=== PATIENT | male | born 1935 | race Caucasian/White ===

== ENCOUNTER 2018-02-04 17:16 | Inpatient (IN) | payer MEDICARE, BC ==
[~2018-02-04] VITALS: Ht 172.7 cm; Wt 69.5 kg
[2018-02-04] MEDS ORDERED: normal saline 1000ml 1,000 ML IV ONE (17:24)
[2018-02-04 17:48] LABS: BASOPHILS % (AUTO) 0.3 % (0-1); EOSINOPHILS # (AUTO) 0.1 X10'3 (0-0.9); EOSINOPHILS % (AUTO) 0.8 % (0-6); HEMATOCRIT 37.3 % (42.0-52.0); HEMOGLOBIN 12.4 g/dl (14.0-17.9); LYMPHOCYTES # (AUTO) 1.4 X10'3 (1.1-4.8); LYMPHOCYTES % (AUTO) 11.5 % (21-51); MEAN CORPUSCULAR HGB CONC 33.3 % (33.0-36.5); MEAN CORPUSCULAR VOLUME 86.9 FL (78-98); MEAN PLATELET VOLUME 9.8 FL (7.4-10.4); MONOCYTES % (AUTO) 8.4 % (2-12); NEUTROPHILS # (AUTO) 9.7 X10'3 (1.8-7.7); PLATELET COUNT 156 X10'3 (140-440); RED BLOOD COUNT 4.29 X10'6 (4.70-6.10); RED CELL DISTRIBUTION WIDTH 17.7 % (11.5-14.5); WHITE BLOOD COUNT 12.3 X10'3 (4.5-11.0)
[2018-02-04 18:01] LABS: INR 1.1 INR; PARTIAL THROMBOPLASTIN TIME 27 SECONDS (22-32); PROTHROMBIN TIME 11.2 SECONDS (9.0-12.0)
[2018-02-04 18:09] LABS: ALANINE AMINOTRANSFERASE 13 U/L (12-78); ALBUMIN 2.9 G/DL (3.4-5.0); ALBUMIN/GLOBULIN RATIO 0.7 (1.1-1.5); ALKALINE PHOSPHATASE 92 IU/L (46-116); ANION GAP 17 (8-16); ASPARTATE AMINO TRANSFERASE 13 U/L (10-37); BILIRUBIN,TOTAL 0.2 MG/DL (0.1-1.0); BLOOD UREA NITROGEN 97 MG/DL (7-18); BUN/CREATININE RATIO 12.8 (5.4-32.0); CHLORIDE 104 MMOL/L (99-107); CREATININE 7.55 MG/DL (0.60-1.10); GLUCOSE 101 MG/DL (70-104); POTASSIUM 4.6 MMOL/L (3.5-5.1); SODIUM 143 MMOL/L (135-145); TOTAL CARBON DIOXIDE 21.7 MMOL/L (24-32); TOTAL PROTEIN 7.1 G/DL (6.4-8.2); eGFR 7 ML/MIN
[2018-02-04 18:20] LABS: MAGNESIUM 3.6 MG/DL (1.5-2.4)
[2018-02-04 18:25] LABS: PHOSPHORUS 12.9 MG/DL (2.3-4.5)
[2018-02-04] MEDS ORDERED: magnesium 1gm/100ml D5W IVPB 100 ML IV PRN (18:25)
[2018-02-04] MEDS ORDERED: mag hydrox/Alum hydrox/simeth 30ml oral suspension PO PRN (18:25)
[2018-02-04] MEDS ORDERED: acetaminophen 325mg tablet PO PRN (18:25)
[2018-02-04] MEDS ORDERED: ondansetron/PF 4mg/2ml inj IV PRN (18:25)
[2018-02-04] MEDS ORDERED: HYDROcodone/acetaminophen 10/325mg tab PO PRN (18:25)
[2018-02-04] MEDS ORDERED: magnesium 4gm in 100ml NS 100 ML IV PRN (18:25)
[2018-02-04] MEDS ORDERED: magnesium Cl slow-release 64mg tablet PO PRN (18:25)
[2018-02-04] MEDS ORDERED: potassium Cl 20 mEq SR tablet PO PRN ×2 (18:25)
[2018-02-04] MEDS ORDERED: potassium Cl 40MEQ/NS 500ml 500 ML IV PRN ×2 (18:25)
[2018-02-04] MEDS ORDERED: HYDROcodone/acetaminophen 5mg/325mg tablet PO PRN (18:25)
[2018-02-04] MEDS ORDERED: morphine 4 MG/ML inj SYRINge IV PRN ×2 (18:25)
[2018-02-04 18:31] LABS: CLARITY,URINE CLOUDY (Clear); COLOR,URINE YELLOW (Yellow); GLUCOSE, URINE NEGATIVE (Neg); KETONES,URINE NEGATIVE (Neg); LEUKOCYTE ESTERASE ,URINE TRACE (Neg); NITRITES, URINE NEGATIVE (Neg); OCCULT BLOOD,URINE SMALL (Neg); PH,URINE 5.5 (4.8-8.0); PROTEIN,URINE 30 mg/dl (Neg); UA COLLECTION TYPE FOLEY CATH; UROBILINOGEN,URINE 0.2 E.U/dL (0.2-1.0)
[2018-02-04 18:38] LABS: HYALINE CASTS >30 /LPF (NEGATIVE); SQUAMOUS EPITHELIAL CELL,UR FEW /LPF (FEW)
[2018-02-04 18:39] LABS: BACTERIA,URINE 1+ /HPF (Neg); RBC,URINE 0-2 /HPF (0-2); RENAL CELLS, URINE MODERATE /HPF; TRANSITIONAL EPI CELLS,URINE FEW /HPF
[2018-02-04] MEDS ORDERED: proCHLORperazine 10 MG/2 ml inj IV PRN (18:55)
[2018-02-04] MEDS ORDERED: vancomycin 125mg/5ml ORAL solution 5ml UD bottle PO SCH (20:00)
[2018-02-04] MEDS: normal saline 1000ml 1,000 ML IV SCH (20:43)
[2018-02-04] MEDS: metroNIDAZOLE-Flagyl 500mg/NS 100 ML IV SCH ×2 (21:28→23:57)
[2018-02-04] MEDS: pantoprazole 40 MG vial IV SCH (21:28)
[2018-02-04] MEDS: calcium acetate 667mg (PhosLO) capsule PO SCH (21:28)
[2018-02-04] MEDS: LIDOcaine 5% patch TP SCH (21:28)
[2018-02-04] MEDS: heparin, porcine 5000 units/ml vial SQ SCH (21:29)
[2018-02-04 23:00] VITALS: BP 96/45
[2018-02-05 03:00] VITALS: BP 89/31
[2018-02-05] MEDS: normal saline 1000ml 1,000 ML IV SCH ×3 (04:25→15:57)
[2018-02-05 06:00] VITALS: BP 90/42
[2018-02-05 06:02] LABS: BASOPHILS % (AUTO) 0.3 % (0-1); EOSINOPHILS # (AUTO) 0.4 X10'3 (0-0.9); HEMATOCRIT 35.5 % (42.0-52.0); HEMOGLOBIN 11.9 g/dl (14.0-17.9); LYMPHOCYTES # (AUTO) 1.7 X10'3 (1.1-4.8); LYMPHOCYTES % (AUTO) 18.3 % (21-51); MEAN CORPUSCULAR HGB CONC 33.6 % (33.0-36.5); MEAN CORPUSCULAR VOLUME 86.4 FL (78-98); MONOCYTES # (AUTO) 0.6 X10'3 (0-0.9); MONOCYTES % (AUTO) 6.6 % (2-12); NEUTROPHILS # (AUTO) 6.4 X10'3 (1.8-7.7); NEUTROPHILS % (AUTO) 70.8 % (42-75); PLATELET COUNT 140 X10'3 (140-440); RED BLOOD COUNT 4.11 X10'6 (4.70-6.10); RED CELL DISTRIBUTION WIDTH 17.4 % (11.5-14.5); WHITE BLOOD COUNT 9.1 X10'3 (4.5-11.0)
[2018-02-05 06:09] LABS: ALANINE AMINOTRANSFERASE 9 U/L (12-78); ALBUMIN 2.8 G/DL (3.4-5.0); ALBUMIN/GLOBULIN RATIO 0.6 (1.1-1.5); ALKALINE PHOSPHATASE 90 IU/L (46-116); ANION GAP 18 (8-16); ASPARTATE AMINO TRANSFERASE 16 U/L (10-37); BILIRUBIN,TOTAL 0.1 MG/DL (0.1-1.0); BLOOD UREA NITROGEN 94 MG/DL (7-18); BUN/CREATININE RATIO 16.3 (5.4-32.0); CALCIUM 7.7 MG/DL (8.5-10.1); CHLORIDE 107 MMOL/L (99-107); CREATININE 5.78 MG/DL (0.60-1.10); GLUCOSE 82 MG/DL (70-104); POTASSIUM 4.4 MMOL/L (3.5-5.1); SODIUM 146 MMOL/L (135-145); TOTAL PROTEIN 7.5 G/DL (6.4-8.2); eGFR 9 ML/MIN
[2018-02-05 06:16] LABS: MAGNESIUM 3.4 MG/DL (1.5-2.4)
[2018-02-05] MEDS: LIDOcaine 5% patch TP SCH (08:00)
[2018-02-05] MEDS: K and/or MAG REPLACEMENT MC SCH (08:00)
[2018-02-05 08:59] LABS: PHOSPHORUS 8.9 MG/DL (2.3-4.5)
[2018-02-05] MEDS: calcium acetate 667mg (PhosLO) capsule PO SCH ×3 (09:32→19:25)
[2018-02-05] MEDS: metroNIDAZOLE-Flagyl 500mg/NS 100 ML IV SCH ×2 (09:32→15:56)
[2018-02-05] MEDS: nicotine 21mg patch - 24 hr TD SCH (09:33)
[2018-02-05] MEDS: pantoprazole 40 MG vial IV SCH (09:33)
[2018-02-05] MEDS: heparin, porcine 5000 units/ml vial SQ SCH ×2 (09:36→22:37)
[2018-02-05 09:53] LABS: CLARITY,URINE SLIGHTLY CLOUDY (Clear); COLOR,URINE YELLOW (Yellow); GLUCOSE, URINE NEGATIVE (Neg); KETONES,URINE NEGATIVE (Neg); LEUKOCYTE ESTERASE ,URINE SMALL (Neg); NITRITES, URINE NEGATIVE (Neg); OCCULT BLOOD,URINE LARGE (Neg); PROTEIN,URINE 100 mg/dl (Neg); UROBILINOGEN,URINE 0.2 E.U/dL (0.2-1.0)
[2018-02-05 10:01] LABS: TOTAL PROTEIN,URINE RANDOM 87.4 MG/DL; UA COLLECTION TYPE FOLEY CATH
[2018-02-05 10:02] LABS: BACTERIA,URINE FEW /HPF (Neg)
[2018-02-05 10:03] LABS: HYALINE CASTS 0-3 /LPF (NEGATIVE); MUCUS STRANDS FEW /LPF (Neg); SQUAMOUS EPITHELIAL CELL,UR FEW /LPF (FEW); TRANSITIONAL EPI CELLS,URINE FEW /HPF; WBC CLUMPS,URINE FEW /HPF (NEGATIVE)
[2018-02-05 10:49] LABS: UA EOSINOPHILS NO EOS /HPF
[2018-02-05 11:00] VITALS: BP 88/48
[2018-02-05] MEDS ORDERED: TEMA15CA PO (11:17)
[2018-02-05] MEDS ORDERED: OXYC-150 PO (11:17)
[2018-02-05] MEDS ORDERED: FURO-149 PO (11:17)
[2018-02-05] MEDS ORDERED: NYST1000 PO (11:17)
[2018-02-05] MEDS ORDERED: PANT-47 PO (11:17)
[2018-02-05] MEDS ORDERED: MSC15T PO (11:17)
[2018-02-05] MEDS ORDERED: SYN0.112T PO (11:17)
[2018-02-05] MEDS ORDERED: NITR0.4T51 SL (11:17)
[2018-02-05] MEDS ORDERED: SIMV10TA6 PO (11:17)
[2018-02-05] MEDS ORDERED: CLOP75TA15 PO (11:19)
[2018-02-05] MEDS ORDERED: SOTA80TA PO (11:19)
[2018-02-05] MEDS ORDERED: LORA10TA7 PO (11:19)
[2018-02-05] MEDS ORDERED: LISI40TA4 PO (11:19)
[2018-02-05 11:28] LABS: CRYPTOSPORIDIUM AG NEGATIVE (Neg); GIARDIA LAMBLIA AG NEGATIVE (Neg)
[2018-02-05] MEDS ORDERED: oxyCODONE/APAP 10/325mg tablet PO PRN (11:35)
[2018-02-05] MEDS ORDERED: nitroGLYCERIN 0.4mg SUBLingual tab SL PRN (11:35)
[2018-02-05 11:42] LABS: C DIFF ANTIGEN NEGATIVE (NEGATIVE); C DIFF SPECIMEN=DIARRHEA? ACCEPTABLE; C DIFFICILE TOXINS A&B NEGATIVE (Neg)
[2018-02-05] MEDS ORDERED: loperamide 2mg capsule PO PRN (11:50)
[2018-02-05 13:42] LABS: CREATINE KINASE 478 U/L (39-308)
[2018-02-05 15:00] VITALS: BP_SYST 89; BP_SYST 91; BP_SYST 97; BP_DIAS 39; BP_DIAS 41; BP_DIAS 47
[2018-02-05] MEDS ORDERED: diltiazem 5mg/ml 5ml inj. IV ONE (15:30)
[2018-02-05 19:00] VITALS: BP 89/45
[2018-02-05] MEDS: morphine ER 15mg tablet PO SCH (20:00)
[2018-02-05] MEDS: atorvastatin 10mg tablet PO SCH (22:36)
[2018-02-05 23:00] VITALS: BP 91/40
[2018-02-06] MEDS: metroNIDAZOLE-Flagyl 500mg/NS 100 ML IV SCH ×2 (00:13→09:05)
[2018-02-06 03:00] VITALS: BP 106/52
[2018-02-06 06:00] VITALS: BP 119/43
[2018-02-06 06:11] LABS: BASOPHILS % (AUTO) 0.4 % (0-1); EOSINOPHILS # (AUTO) 0.4 X10'3 (0-0.9); EOSINOPHILS % (AUTO) 4.7 % (0-6); HEMATOCRIT 34.3 % (42.0-52.0); HEMOGLOBIN 11.5 g/dl (14.0-17.9); LYMPHOCYTES # (AUTO) 1.1 X10'3 (1.1-4.8); LYMPHOCYTES % (AUTO) 14.9 % (21-51); MEAN CORPUSCULAR HGB CONC 33.5 % (33.0-36.5); MEAN CORPUSCULAR VOLUME 86.4 FL (78-98); MEAN PLATELET VOLUME 9.6 FL (7.4-10.4); MONOCYTES # (AUTO) 0.6 X10'3 (0-0.9); MONOCYTES % (AUTO) 7.3 % (2-12); NEUTROPHILS # (AUTO) 5.5 X10'3 (1.8-7.7); NEUTROPHILS % (AUTO) 72.7 % (42-75); PLATELET COUNT 137 X10'3 (140-440); RED BLOOD COUNT 3.97 X10'6 (4.70-6.10); RED CELL DISTRIBUTION WIDTH 17.8 % (11.5-14.5); WHITE BLOOD COUNT 7.6 X10'3 (4.5-11.0)
[2018-02-06] MEDS: pantoprazole 40 MG vial IV SCH (06:34)
[2018-02-06] MEDS: normal saline 1000ml 1,000 ML IV SCH ×2 (06:37→14:37)
[2018-02-06 06:40] LABS: ALANINE AMINOTRANSFERASE 16 U/L (12-78); ALBUMIN 2.6 G/DL (3.4-5.0); ALBUMIN/GLOBULIN RATIO 0.7 (1.1-1.5); ALKALINE PHOSPHATASE 72 IU/L (46-116); ANION GAP 11 (8-16); ASPARTATE AMINO TRANSFERASE 26 U/L (10-37); BILIRUBIN,TOTAL 0.3 MG/DL (0.1-1.0); BLOOD UREA NITROGEN 62 MG/DL (7-18); BUN/CREATININE RATIO 26.1 (5.4-32.0); CALCIUM 8.3 MG/DL (8.5-10.1); CHLORIDE 117 MMOL/L (99-107); CREATININE 2.38 MG/DL (0.60-1.10); GLUCOSE 77 MG/DL (70-104); LACTATE DEHYDROGENASE 182 U/L (85-227); MAGNESIUM 2.6 MG/DL (1.5-2.4); PHOSPHORUS 4.3 MG/DL (2.3-4.5); POTASSIUM 3.5 MMOL/L (3.5-5.1); SODIUM 147 MMOL/L (135-145); TOTAL CARBON DIOXIDE 19.5 MMOL/L (24-32); TOTAL PROTEIN 6.6 G/DL (6.4-8.2); eGFR 26 ML/MIN
[2018-02-06 07:20] LABS: RHEUM FACTOR QUAL REFLEX TITER NEGATIVE (Neg)
[2018-02-06] MEDS: loratadine 10mg tablet PO SCH (08:00)
[2018-02-06] MEDS ORDERED: levoTHYROXINE 112mcg tablet PO SCH (08:00)
[2018-02-06] MEDS: K and/or MAG REPLACEMENT MC SCH (08:00)
[2018-02-06] MEDS: calcium acetate 667mg (PhosLO) capsule PO SCH ×3 (09:03→19:55)
[2018-02-06] MEDS: morphine ER 15mg tablet PO SCH (09:03)
[2018-02-06] MEDS: heparin, porcine 5000 units/ml vial SQ SCH ×2 (09:04→19:56)
[2018-02-06] MEDS: pantoprazole 40mg Tablet.DR PO SCH (09:04)
[2018-02-06] MEDS: clopidogrel 75mg tablet PO SCH (09:04)
[2018-02-06] MEDS: LIDOcaine 5% patch TP SCH (09:05)
[2018-02-06] MEDS: nicotine 21mg patch - 24 hr TD SCH (09:05)
[2018-02-06 11:00] VITALS: BP 132/67
[2018-02-06 12:02] LABS: % FREE PSA 55.7 % (.); PSA, FREE 1.17 ng/mL
[2018-02-06 15:00] VITALS: BP 114/59
[2018-02-06] MEDS ORDERED: metroNIDAZOLE 500mg tablet PO SCH (16:00)
[2018-02-06] MEDS ORDERED: morphine ER 15mg tablet PO PRN (17:55)
[2018-02-06 18:00] VITALS: BP 137/73
[2018-02-06] MEDS: atorvastatin 10mg tablet PO SCH (20:07)
[2018-02-06 22:00] VITALS: BP 116/73
[2018-02-07] MEDS: temazepam 15mg capsule PO PRN ×2 (00:15→23:54)
[2018-02-07 02:00] VITALS: BP 126/67
[2018-02-07 06:00] VITALS: BP 123/64
[2018-02-07 06:31] LABS: ALANINE AMINOTRANSFERASE 16 U/L (12-78); ALBUMIN 2.5 G/DL (3.4-5.0); ALBUMIN/GLOBULIN RATIO 0.7 (1.1-1.5); ALKALINE PHOSPHATASE 63 IU/L (46-116); ANION GAP 9 (8-16); ASPARTATE AMINO TRANSFERASE 15 U/L (10-37); BILIRUBIN,TOTAL 0.4 MG/DL (0.1-1.0); BLOOD UREA NITROGEN 33 MG/DL (7-18); BUN/CREATININE RATIO 21.9 (5.4-32.0); CALCIUM 8.8 MG/DL (8.5-10.1); CHLORIDE 119 MMOL/L (99-107); CREATININE 1.51 MG/DL (0.60-1.10); GLUCOSE 108 MG/DL (70-104); MAGNESIUM 2.1 MG/DL (1.5-2.4); PHOSPHORUS 2.3 MG/DL (2.3-4.5); POTASSIUM 3.1 MMOL/L (3.5-5.1); SODIUM 148 MMOL/L (135-145); TOTAL CARBON DIOXIDE 20.3 MMOL/L (24-32); TOTAL PROTEIN 6.3 G/DL (6.4-8.2); eGFR 45 ML/MIN
[2018-02-07 06:32] LABS: BASOPHILS % (AUTO) 0.5 % (0-1); EOSINOPHILS # (AUTO) 0.5 X10'3 (0-0.9); EOSINOPHILS % (AUTO) 6.7 % (0-6); HEMATOCRIT 33.9 % (42.0-52.0); HEMOGLOBIN 11.3 g/dl (14.0-17.9); LYMPHOCYTES # (AUTO) 1.5 X10'3 (1.1-4.8); LYMPHOCYTES % (AUTO) 19.5 % (21-51); MEAN CORPUSCULAR HEMOGLOBIN 28.7 PG (27.0-31.0); MEAN CORPUSCULAR HGB CONC 33.2 % (33.0-36.5); MEAN CORPUSCULAR VOLUME 86.4 FL (78-98); MEAN PLATELET VOLUME 9.7 FL (7.4-10.4); MONOCYTES # (AUTO) 0.7 X10'3 (0-0.9); MONOCYTES % (AUTO) 8.9 % (2-12); NEUTROPHILS # (AUTO) 4.9 X10'3 (1.8-7.7); NEUTROPHILS % (AUTO) 64.4 % (42-75); PLATELET COUNT 153 X10'3 (140-440); RED BLOOD COUNT 3.92 X10'6 (4.70-6.10); RED CELL DISTRIBUTION WIDTH 17.6 % (11.5-14.5); WHITE BLOOD COUNT 7.6 X10'3 (4.5-11.0)
[2018-02-07] MEDS ORDERED: pantoprazole 40mg Tablet.DR PO SCH (07:30)
[2018-02-07] MEDS: calcium acetate 667mg (PhosLO) capsule PO SCH ×2 (07:51→12:54)
[2018-02-07] MEDS: heparin, porcine 5000 units/ml vial SQ SCH (07:52)
[2018-02-07] MEDS: LIDOcaine 5% patch TP SCH (07:52)
[2018-02-07] MEDS: K and/or MAG REPLACEMENT MC SCH (08:00)
[2018-02-07] MEDS: docusate sod 100mg capsule PO SCH ×2 (08:20→19:40)
[2018-02-07] MEDS: loratadine 10mg tablet PO SCH (08:23)
[2018-02-07] MEDS: pantoprazole 40mg Tablet.DR PO SCH (08:23)
[2018-02-07] MEDS: clopidogrel 75mg tablet PO SCH (08:23)
[2018-02-07] MEDS: nicotine 21mg patch - 24 hr TD SCH (08:25)
[2018-02-07 09:48] LABS: ANTISTREPTOLYSIN O AB 40.7 IU/mL (0.0-200.0)
[2018-02-07 11:47] LABS: HEPATITIS C ANTIBODY 0.3 s/co ratio (0.0-0.9)
[2018-02-07] MEDS ORDERED: sotalol 80mg tablet PO ONE (11:55)
[2018-02-07 17:12] LABS: ANTINUCLEAR ANTIBODIES Negative (Negative)
[2018-02-07 19:00] VITALS: BP 146/78
[2018-02-07] MEDS: sotalol 80mg tablet PO SCH (19:40)
[2018-02-07] MEDS: atorvastatin 10mg tablet PO SCH (19:40)
[2018-02-07] MEDS ORDERED: sotalol 80mg tablet PO SCH (20:00)
[2018-02-08] MEDS: morphine ER 15mg tablet PO PRN ×3 (06:03→23:04)
[2018-02-08 06:43] LABS: COMPLEMENT C3, SERUM 129 mg/dL (82-167); COMPLEMENT C4, SERUM 24 mg/dL (14-44)
[2018-02-08] MEDS: nicotine 21mg patch - 24 hr TD SCH (06:49)
[2018-02-08] MEDS: oxyCODONE/APAP 10/325mg tablet PO PRN ×2 (06:50→23:48)
[2018-02-08] MEDS: docusate sod 100mg capsule PO SCH ×2 (06:50→19:58)
[2018-02-08] MEDS: pantoprazole 40mg Tablet.DR PO SCH (06:50)
[2018-02-08] MEDS: sotalol 80mg tablet PO SCH ×2 (06:51→19:58)
[2018-02-08] MEDS: loratadine 10mg tablet PO SCH (06:56)
[2018-02-08] MEDS: K and/or MAG REPLACEMENT MC SCH (08:00)
[2018-02-08] MEDS: LIDOcaine 5% patch TP SCH (08:00)
[2018-02-08 19:00] VITALS: BP 131/65
[2018-02-08] MEDS: atorvastatin 10mg tablet PO SCH (19:58)
[2018-02-08] MEDS: temazepam 15mg capsule PO PRN (23:03)
[2018-02-09 06:00] VITALS: BP 126/78
[2018-02-09] MEDS: K and/or MAG REPLACEMENT MC SCH (08:00)
[2018-02-09] MEDS: nicotine 21mg patch - 24 hr TD SCH (08:40)
[2018-02-09] MEDS: sotalol 80mg tablet PO SCH ×2 (08:41→20:15)
[2018-02-09] MEDS: pantoprazole 40mg Tablet.DR PO SCH (08:42)
[2018-02-09] MEDS: loratadine 10mg tablet PO SCH (08:42)
[2018-02-09] MEDS: docusate sod 100mg capsule PO SCH ×2 (08:42→20:15)
[2018-02-09] MEDS: LIDOcaine 5% patch TP SCH (08:43)
[2018-02-09 11:00] VITALS: BP 169/114
[2018-02-09] MEDS: atorvastatin 10mg tablet PO SCH (20:15)
[2018-02-09] MEDS: morphine ER 15mg tablet PO PRN (21:23)
[2018-02-09] MEDS: oxyCODONE/APAP 10/325mg tablet PO PRN (21:51)
[2018-02-09 22:00] VITALS: BP 143/68
[2018-02-09] MEDS: temazepam 15mg capsule PO PRN (23:52)
[2018-02-10] MEDS: docusate sod 100mg capsule PO SCH ×2 (07:55→18:56)
[2018-02-10] MEDS: pantoprazole 40mg Tablet.DR PO SCH (07:55)
[2018-02-10] MEDS: sotalol 80mg tablet PO SCH ×2 (07:55→18:56)
[2018-02-10] MEDS: loratadine 10mg tablet PO SCH (07:55)
[2018-02-10] MEDS: nicotine 21mg patch - 24 hr TD SCH (07:58)
[2018-02-10] MEDS: K and/or MAG REPLACEMENT MC SCH (08:00)
[2018-02-10] MEDS: LIDOcaine 5% patch TP SCH (08:03)
[2018-02-10] MEDS: oxyCODONE/APAP 10/325mg tablet PO PRN ×3 (08:07→23:49)
[2018-02-10] MEDS: morphine ER 15mg tablet PO PRN ×3 (09:16→23:00)
[2018-02-10] MEDS ORDERED: cyclobenzaprine 10mg tablet PO PRN (12:30)
[2018-02-10] MEDS: cyclobenzaprine 10mg tablet PO PRN (14:25)
[2018-02-10 15:13] LABS: ATYPICAL PANCA <1:20 titer (Neg:<1:20); CYTOPLASMIC (C-ANCA) <1:20 titer (Neg:<1:20); PERINUCLEAR (P-ANCA) <1:20 titer (Neg:<1:20)
[2018-02-10] MEDS: atorvastatin 10mg tablet PO SCH (18:56)
[2018-02-10 19:39] VITALS: BP 145/71
[2018-02-11] MEDS: temazepam 15mg capsule PO PRN ×2 (00:35→23:41)
[2018-02-11] MEDS: cyclobenzaprine 10mg tablet PO PRN ×2 (00:35→23:41)
[2018-02-11] MEDS: docusate sod 100mg capsule PO SCH ×2 (07:04→20:10)
[2018-02-11] MEDS: magnesium hydroxide 30ml (MOM) UD suspension PO PRN (07:06)
[2018-02-11] MEDS: morphine ER 15mg tablet PO PRN ×2 (07:06→20:15)
[2018-02-11] MEDS: sotalol 80mg tablet PO SCH ×2 (07:06→20:10)
[2018-02-11] MEDS: pantoprazole 40mg Tablet.DR PO SCH (07:06)
[2018-02-11] MEDS: nicotine 21mg patch - 24 hr TD SCH (07:07)
[2018-02-11] MEDS: loratadine 10mg tablet PO SCH (07:07)
[2018-02-11] MEDS: LIDOcaine 5% patch TP SCH (07:07)
[2018-02-11] MEDS: oxyCODONE/APAP 10/325mg tablet PO PRN ×2 (07:44→21:27)
[2018-02-11] MEDS: K and/or MAG REPLACEMENT MC SCH (08:00)
[2018-02-11 10:00] VITALS: BP 115/52
[2018-02-11 20:06] VITALS: BP 123/75
[2018-02-11] MEDS: atorvastatin 10mg tablet PO SCH (20:10)
[2018-02-11 22:00] VITALS: BP 132/72
[2018-02-12] MEDS: pantoprazole 40mg Tablet.DR PO SCH (06:54)
[2018-02-12] MEDS: sotalol 80mg tablet PO SCH ×2 (06:54→19:38)
[2018-02-12] MEDS: loratadine 10mg tablet PO SCH (06:54)
[2018-02-12] MEDS: oxyCODONE/APAP 10/325mg tablet PO PRN ×2 (06:54→19:31)
[2018-02-12] MEDS: nicotine 21mg patch - 24 hr TD SCH (06:55)
[2018-02-12] MEDS: K and/or MAG REPLACEMENT MC SCH (06:55)
[2018-02-12] MEDS: docusate sod 100mg capsule PO SCH ×2 (06:56→20:00)
[2018-02-12] MEDS: morphine ER 15mg tablet PO PRN ×2 (07:53→18:38)
[2018-02-12] MEDS: LIDOcaine 5% patch TP SCH (07:54)
[2018-02-12 10:00] VITALS: BP 111/57
[2018-02-12] MEDS: cyclobenzaprine 10mg tablet PO PRN (12:48)
[2018-02-12 19:34] VITALS: BP 121/80
[2018-02-12] MEDS: atorvastatin 10mg tablet PO SCH (19:38)
[2018-02-12 22:00] VITALS: BP 108/58
[2018-02-13] MEDS: temazepam 15mg capsule PO PRN (00:49)
[2018-02-13] MEDS: cyclobenzaprine 10mg tablet PO PRN (00:50)
[2018-02-13] MEDS: morphine ER 15mg tablet PO PRN ×2 (05:07→19:40)
[2018-02-13] MEDS: oxyCODONE/APAP 10/325mg tablet PO PRN ×2 (05:49→20:17)
[2018-02-13 06:00] VITALS: BP 114/67
[2018-02-13] MEDS: K and/or MAG REPLACEMENT MC SCH (08:00)
[2018-02-13] MEDS: docusate sod 100mg capsule PO SCH ×2 (08:00→19:40)
[2018-02-13] MEDS: LIDOcaine 5% patch TP SCH (08:12)
[2018-02-13] MEDS: loratadine 10mg tablet PO SCH (08:53)
[2018-02-13] MEDS: sotalol 80mg tablet PO SCH ×2 (08:54→19:40)
[2018-02-13] MEDS: pantoprazole 40mg Tablet.DR PO SCH (08:54)
[2018-02-13] MEDS: nicotine 21mg patch - 24 hr TD SCH (08:55)
[2018-02-13 10:00] VITALS: BP 106/55
[2018-02-13 18:00] VITALS: BP 146/73
[2018-02-13 19:39] VITALS: BP 114/48
[2018-02-13] MEDS: atorvastatin 10mg tablet PO SCH (19:40)
[2018-02-13 22:00] VITALS: BP 119/61
[2018-02-14] MEDS: temazepam 15mg capsule PO PRN (00:07)
[2018-02-14] MEDS: cyclobenzaprine 10mg tablet PO PRN (00:07)
[2018-02-14 05:00] VITALS: BP 148/66
[2018-02-14] MEDS: K and/or MAG REPLACEMENT MC SCH (07:29)
[2018-02-14] MEDS: nicotine 21mg patch - 24 hr TD SCH (07:41)
[2018-02-14] MEDS: sotalol 80mg tablet PO SCH ×2 (07:41→20:20)
[2018-02-14] MEDS: LIDOcaine 5% patch TP SCH (07:41)
[2018-02-14] MEDS: loratadine 10mg tablet PO SCH (07:42)
[2018-02-14] MEDS: pantoprazole 40mg Tablet.DR PO SCH (07:42)
[2018-02-14] MEDS: docusate sod 100mg capsule PO SCH ×2 (08:00→20:20)
[2018-02-14] MEDS: morphine ER 15mg tablet PO PRN ×3 (09:12→23:59)
[2018-02-14] MEDS: oxyCODONE/APAP 10/325mg tablet PO PRN ×2 (09:47→17:38)
[2018-02-14 10:00] VITALS: BP 114/61
[2018-02-14 18:00] VITALS: BP 107/48
[2018-02-14] MEDS: atorvastatin 10mg tablet PO SCH (20:20)
[2018-02-14 20:38] VITALS: BP 109/60
[2018-02-14 22:00] VITALS: BP 109/56
[2018-02-15] MEDS: temazepam 15mg capsule PO PRN (00:27)
[2018-02-15] MEDS: oxyCODONE/APAP 10/325mg tablet PO PRN ×3 (00:28→17:55)
[2018-02-15 06:00] VITALS: BP 114/61
[2018-02-15] MEDS: pantoprazole 40mg Tablet.DR PO SCH (07:35)
[2018-02-15] MEDS: sotalol 80mg tablet PO SCH ×2 (07:35→19:56)
[2018-02-15] MEDS: nicotine 21mg patch - 24 hr TD SCH (07:36)
[2018-02-15] MEDS: magnesium hydroxide 30ml (MOM) UD suspension PO PRN (07:36)
[2018-02-15] MEDS: docusate sod 100mg capsule PO SCH ×2 (07:36→19:56)
[2018-02-15] MEDS: loratadine 10mg tablet PO SCH (07:36)
[2018-02-15] MEDS: morphine ER 15mg tablet PO PRN ×2 (07:36→17:30)
[2018-02-15] MEDS: LIDOcaine 5% patch TP SCH (07:37)
[2018-02-15] MEDS: K and/or MAG REPLACEMENT MC SCH (08:00)
[2018-02-15 10:00] VITALS: BP 115/59
[2018-02-15] MEDS: atorvastatin 10mg tablet PO SCH (19:56)
[2018-02-15] MEDS: polyvinyl alcohol ophthalmic drops 15ml bottle EACHEYE PRN (19:57)
[2018-02-15 22:00] VITALS: BP 102/57
[2018-02-16] MEDS: temazepam 15mg capsule PO PRN (00:05)
[2018-02-16] MEDS: oxyCODONE/APAP 10/325mg tablet PO PRN ×3 (00:19→17:24)
[2018-02-16] MEDS: morphine ER 15mg tablet PO PRN ×4 (00:21→23:40)
[2018-02-16] MEDS: cyclobenzaprine 10mg tablet PO PRN (00:21)
[2018-02-16] MEDS: K and/or MAG REPLACEMENT MC SCH (08:00)
[2018-02-16] MEDS: pantoprazole 40mg Tablet.DR PO SCH (09:21)
[2018-02-16] MEDS: sotalol 80mg tablet PO SCH ×2 (09:21→21:00)
[2018-02-16] MEDS: loratadine 10mg tablet PO SCH (09:21)
[2018-02-16] MEDS: polyvinyl alcohol ophthalmic drops 15ml bottle EACHEYE PRN (09:21)
[2018-02-16] MEDS: docusate sod 100mg capsule PO SCH ×2 (09:21→21:00)
[2018-02-16] MEDS: LIDOcaine 5% patch TP SCH (09:28)
[2018-02-16] MEDS: nicotine 21mg patch - 24 hr TD SCH (09:29)
[2018-02-16] MEDS: magnesium hydroxide 30ml (MOM) UD suspension PO PRN (09:33)
[2018-02-16 10:00] VITALS: BP 102/50
[2018-02-16 21:00] VITALS: BP 120/66
[2018-02-16] MEDS: atorvastatin 10mg tablet PO SCH (21:00)
[2018-02-17] MEDS: temazepam 15mg capsule PO PRN (00:09)
[2018-02-17] MEDS: cyclobenzaprine 10mg tablet PO PRN ×2 (00:09→07:56)
[2018-02-17] MEDS: oxyCODONE/APAP 10/325mg tablet PO PRN ×3 (00:09→19:26)
[2018-02-17] MEDS: morphine ER 15mg tablet PO PRN ×2 (06:52→18:37)
[2018-02-17] MEDS: docusate sod 100mg capsule PO SCH ×2 (07:56→19:25)
[2018-02-17] MEDS: pantoprazole 40mg Tablet.DR PO SCH (07:56)
[2018-02-17] MEDS: nicotine 21mg patch - 24 hr TD SCH (07:56)
[2018-02-17] MEDS: LIDOcaine 5% patch TP SCH (07:56)
[2018-02-17] MEDS: sotalol 80mg tablet PO SCH ×2 (07:56→19:25)
[2018-02-17] MEDS: loratadine 10mg tablet PO SCH (07:57)
[2018-02-17] MEDS: K and/or MAG REPLACEMENT MC SCH (08:00)
[2018-02-17 19:23] VITALS: BP 127/65
[2018-02-17] MEDS: atorvastatin 10mg tablet PO SCH (19:25)
[2018-02-17] MEDS: magnesium hydroxide 30ml (MOM) UD suspension PO PRN (22:31)
[2018-02-18] MEDS: temazepam 15mg capsule PO PRN ×2 (00:49→23:51)
[2018-02-18] MEDS: cyclobenzaprine 10mg tablet PO PRN ×2 (00:49→23:51)
[2018-02-18] MEDS: morphine ER 15mg tablet PO PRN ×3 (02:35→23:01)
[2018-02-18] MEDS: K and/or MAG REPLACEMENT MC SCH (07:12)
[2018-02-18] MEDS: pantoprazole 40mg Tablet.DR PO SCH (07:24)
[2018-02-18] MEDS: sotalol 80mg tablet PO SCH ×2 (07:24→20:25)
[2018-02-18] MEDS: nicotine 21mg patch - 24 hr TD SCH (07:24)
[2018-02-18] MEDS: docusate sod 100mg capsule PO SCH ×2 (07:25→20:25)
[2018-02-18] MEDS: loratadine 10mg tablet PO SCH (07:25)
[2018-02-18] MEDS: oxyCODONE/APAP 10/325mg tablet PO PRN ×3 (07:25→23:49)
[2018-02-18] MEDS: LIDOcaine 5% patch TP SCH (07:26)
[2018-02-18 08:00] VITALS: BP 155/70
[2018-02-18 10:00] VITALS: BP 113/56
[2018-02-18 20:23] VITALS: BP 124/62
[2018-02-18] MEDS: atorvastatin 10mg tablet PO SCH (20:25)
[2018-02-19] MEDS: K and/or MAG REPLACEMENT MC SCH (06:59)
[2018-02-19] MEDS: docusate sod 100mg capsule PO SCH ×2 (07:07→20:53)
[2018-02-19] MEDS: sotalol 80mg tablet PO SCH ×2 (07:07→20:53)
[2018-02-19] MEDS: pantoprazole 40mg Tablet.DR PO SCH (07:07)
[2018-02-19] MEDS: morphine ER 15mg tablet PO PRN ×3 (07:08→23:02)
[2018-02-19] MEDS: nicotine 21mg patch - 24 hr TD SCH (07:08)
[2018-02-19] MEDS: loratadine 10mg tablet PO SCH (07:08)
[2018-02-19] MEDS: LIDOcaine 5% patch TP SCH (07:10)
[2018-02-19] MEDS: oxyCODONE/APAP 10/325mg tablet PO PRN ×3 (07:45→23:34)
[2018-02-19 10:00] VITALS: BP 116/61
[2018-02-19] MEDS: magnesium hydroxide 30ml (MOM) UD suspension PO PRN (10:03)
[2018-02-19 20:00] VITALS: BP 151/76
[2018-02-19] MEDS: atorvastatin 10mg tablet PO SCH (20:53)
[2018-02-19 22:00] VITALS: BP 168/84
[2018-02-20] MEDS: cyclobenzaprine 10mg tablet PO PRN (00:16)
[2018-02-20] MEDS: temazepam 15mg capsule PO PRN (00:16)
[2018-02-20] MEDS: morphine ER 15mg tablet PO PRN (07:11)
[2018-02-20] MEDS: K and/or MAG REPLACEMENT MC SCH (08:00)
[2018-02-20] MEDS: sotalol 80mg tablet PO SCH (08:09)
[2018-02-20] MEDS: pantoprazole 40mg Tablet.DR PO SCH (08:10)
[2018-02-20] MEDS: docusate sod 100mg capsule PO SCH (08:10)
[2018-02-20] MEDS: oxyCODONE/APAP 10/325mg tablet PO PRN (08:11)
[2018-02-20] MEDS: LIDOcaine 5% patch TP SCH (08:11)
[2018-02-20] MEDS: nicotine 21mg patch - 24 hr TD SCH (08:11)
[2018-02-20] MEDS: loratadine 10mg tablet PO SCH (08:18)
[2018-02-20 10:00] VITALS: BP 141/72
[2018-02-20] MEDS ORDERED: NICO-687 TD (11:56)
[2018-02-20] MEDS ORDERED: POLY17PO10 PO (11:56)
== END 2018-02-20 12:47 | disposition home or self-care (01) | DRG 391 ==
LOC: ER 17:16 → ED HOLD 18:25 → EDBEDREQ 19:47 → PCU 3S 21:51 → ORTHO 4S 02-09 15:59
PROVIDERS: ADMIT Internal Medicine; ATTEND Internal Medicine
DX: A08.4 Viral intestinal infection, unspecified (principal); N17.0 Acute kidney failure with tubular necrosis; J96.10 Chronic respiratory failure, unspecified whether with hypoxia or hypercapnia; G89.29 Other chronic pain; M54.9 Dorsalgia, unspecified; E86.0 Dehydration; E83.39 Other disorders of phosphorus metabolism; F17.210 Nicotine dependence, cigarettes, uncomplicated; H91.90 Unspecified hearing loss, unspecified ear; I10 Essential (primary) hypertension; M62.838 Other muscle spasm; I25.10 Atherosclerotic heart disease of native coronary artery without angina pectoris; I48.91 Unspecified atrial fibrillation; J44.9 Chronic obstructive pulmonary disease, unspecified; K59.00 Constipation, unspecified; M94.0 Chondrocostal junction syndrome [Tietze]; Z51.5 Encounter for palliative care; Z66 Do not resuscitate; I25.2 Old myocardial infarction; Z90.49 Acquired absence of other specified parts of digestive tract; Z95.5 Presence of coronary angioplasty implant and graft; Z99.81 Dependence on supplemental oxygen; Z88.8 Allergy status to other drugs, medicaments and biological substances; Z86.14 Personal history of Methicillin resistant Staphylococcus aureus infection; Z86.79 Personal history of other diseases of the circulatory system; Z71.6 Tobacco abuse counseling
CPT/HCPCS: 36415; 71045; 76775; 80053; 81001; 82550; 82570; 82595; 83010; 83615; 83735; 83880; 84100; 84153; 84154; 84156; 84300; 84443; 84484; 85025; 85610; 85730; 86038; 86060; 86160; 86256; 86430; 86803; 87045; 87046; 87070; 87088; 87207; 87324; 87328; 87329; 87336; 87449; 93005; 96360; 96361; 97116; 97161; 97530; 99285; A4315; A6212; A6266; A6402; A6449; C1758; C9113; J1644; J3490; J7030

== ENCOUNTER 2020-06-01 11:00 | Outpatient (CLI) | payer MEDICARE, BC ==
[~2020-06-01 11:00] MED LIST: CLOP75TA15 PO; LISI40TA4 PO; LORA10TA7 PO; MSC15T PO; NICO-687 TD; NITR0.4T51 SL; OXYC-150 PO; PANT-47 PO; SIMV10TA98 PO; SOTA80TA PO; SYN0.112T PO; TEMA15CA PO
[2020-06-01] MEDS ORDERED: LIDOcaine 2% 5ml jelly ONE (11:43)
== END 2020-06-01 23:59 | disposition home or self-care (01) ==
LOC: WOUND CARE 11:00
PROVIDERS: ATTEND Nurse Practitioner
DX: T81.89XA Other complications of procedures, not elsewhere classified, initial encounter (principal); L97.321 Non-pressure chronic ulcer of left ankle limited to breakdown of skin; I10 Essential (primary) hypertension; J44.9 Chronic obstructive pulmonary disease, unspecified; I25.10 Atherosclerotic heart disease of native coronary artery without angina pectoris; M94.0 Chondrocostal junction syndrome [Tietze]; J96.10 Chronic respiratory failure, unspecified whether with hypoxia or hypercapnia; I71.4 Abdominal aortic aneurysm, without rupture; I48.91 Unspecified atrial fibrillation; E83.39 Other disorders of phosphorus metabolism; K59.00 Constipation, unspecified; M54.9 Dorsalgia, unspecified; G89.29 Other chronic pain; I25.2 Old myocardial infarction; I71.9 Aortic aneurysm of unspecified site, without rupture; F17.210 Nicotine dependence, cigarettes, uncomplicated; Z86.14 Personal history of Methicillin resistant Staphylococcus aureus infection; Z99.81 Dependence on supplemental oxygen; Z86.79 Personal history of other diseases of the circulatory system; Z90.49 Acquired absence of other specified parts of digestive tract; Z95.5 Presence of coronary angioplasty implant and graft; Y83.8 Other surgical procedures as the cause of abnormal reaction of the patient, or of later complication, without mention of misadventure at the time of the procedure; Y92.234 Operating room of hospital as the place of occurrence of the external cause
CPT/HCPCS: 73610; 97597

== ENCOUNTER 2020-06-15 09:57 | Outpatient (CLI) | payer MEDICARE, BC ==
[2020-06-15] MEDS ORDERED: LIDOcaine 2% 5ml jelly ONE (10:58)
== END 2020-06-15 23:59 | disposition home or self-care (01) ==
LOC: WOUND CARE 09:57
PROVIDERS: ATTEND Nurse Practitioner
DX: T81.89XD Other complications of procedures, not elsewhere classified, subsequent encounter (principal); L97.321 Non-pressure chronic ulcer of left ankle limited to breakdown of skin; I10 Essential (primary) hypertension; J44.9 Chronic obstructive pulmonary disease, unspecified; I25.10 Atherosclerotic heart disease of native coronary artery without angina pectoris; M94.0 Chondrocostal junction syndrome [Tietze]; J96.10 Chronic respiratory failure, unspecified whether with hypoxia or hypercapnia; I48.91 Unspecified atrial fibrillation; I25.2 Old myocardial infarction; I73.9 Peripheral vascular disease, unspecified; F17.210 Nicotine dependence, cigarettes, uncomplicated; Z86.14 Personal history of Methicillin resistant Staphylococcus aureus infection; Z99.81 Dependence on supplemental oxygen; Z86.79 Personal history of other diseases of the circulatory system; Z90.49 Acquired absence of other specified parts of digestive tract; Z95.5 Presence of coronary angioplasty implant and graft; Y83.8 Other surgical procedures as the cause of abnormal reaction of the patient, or of later complication, without mention of misadventure at the time of the procedure
CPT/HCPCS: 97597